=== PATIENT | female | born 2000 | race Caucasian/White ===

== ENCOUNTER 2023-05-30 11:41 | Emergency (ER) | payer BC, SELFPAY ==
[2023-05-30 11:49] VITALS: BP 124/78; PULSE 84; RESP 18; TEMP 36.4; O2SAT 98
--- NOTE | 2023-05-30 12:12 | ED.URI ---
HPI - URI/Sore Throat General Chief Complaint: Upper Respiratory Infection Stated Complaint: sore throat Time Seen by Provider: 05/30/23 12:10 Source: patient, RN notes reviewed and old records reviewed Mode of arrival: ambulatory Limitations: no limitations History of Present Illness HPI Narrative: 23-year-old female who presents to [facility] with complaints of 3 day history of worsening sore throat, head congestion, some body aches. Patient has been taking Advil for her complaints. Patient reports that her throat is painful to swallow and burning rates her pain 6/10. Patient denies any known illl contacts. MD elicited complaint: sore throat and nasal congestion Pertinent past history: sinusitis Onset (ago): day(s) (3) Pain scale (0-10): 6 Able to tolerate fluids by mouth: Yes Exacerbating factors: swallowing Associated symptoms: myalgias, rhinorrhea, nasal congestion and sore throat Treatments prior to arrival: ibuprofen Related Data Home Medications Medication Instructions Recorded Confirmed bupropion HCl 150 mg 24 hr tablet, 150 mg PO DAILY 05/30/23 05/30/23 extended release citalopram 20 mg tablet 20 mg PO DAILY 05/30/23 05/30/23 omeprazole 40 mg capsule,delayed 40 mg PO DAILY 05/30/23 05/30/23 release Allergies Allergy/AdvReac Type Severity Reaction Status Date / Time No Known Allergies Allergy Verified 05/30/23 12:04 Review of Systems Review of Systems: CONSTITUTIONAL: Denies malaise, chills, sweats, or known fever. EYES: Denies visual changes, redness, or discharge. ENT: Reports rhinorrhea, congestion, sinus pain,no otalgia positive for sore throat. CARDIOVASCULAR: Denies chest pain, palpitations, or edema. RESPIRATORY: Reports no cough.? Denies dyspnea. GASTROINTESTINAL: Denies abdominal pain, nausea, vomiting, diarrhea SKIN: Denies rash or itching. MUSCULOSKELETAL: Reports myalgia. NEUROLOGIC: Denies headache. All systems reviewed & are unremarkable except as noted in HPI and below PMFSH Past Medical History Medical History (Updated 05/31/23 @ 00:02 by Td Steele) Anxiety and depression GERD (gastroesophageal reflux disease) PCOS (polycystic ovarian syndrome) Social History Social History (Updated 05/31/23 @ 08:44 by Casi Oseguera NP) Smoking status: Current some day smoker Tobacco type: e-cigarettes/vaping Alcohol intake: current Alcohol use details: social Substance use type: does not use Gender identity (if verbalized by the patient): Female Comments At time of signature, agree with nursing past medical, surgical, social and family history. There is no relevant family history pertinent to the presenting complaint Exam Narrative: GENERAL: Well-appearing, well-nourished, and in no acute distress. HEAD: Normocephalic EYES: PERRLA, conjunctivae clear ENT: Nares clear, turbinates edematous and erythematous, clear discharge. Mucous membranes moist. TM pearly robles with dull light reflex bilaterally; no tragal tenderness. Oropharynx erythematous without lesions. Tonsils red enlarged and without exudate, no drooling, no hoarseness, no trismus, uvula midline. NECK: Supple. lymphadenopathy CHEST: Clear to auscultation, breath sounds equal. No wheezing, rhonchi, rales, or stridor. No respiratory distress, speaks in full sentences.no cough noed SAO2 98% on room air HEART: Regular rate and rhythm. No murmur heard. SKIN: Warm, dry, no rash. NEURO: Alert and oriented x3. PSYCH: Normal mood and affect Course Course Emergency Course: Patient is aware of diagnosis, understands and agrees to treatment plan.? Anticipatory guidance given.? Patient agrees to follow-up as directed and is aware of reasons to seek care at the emergency department. Portions of this record may have been created with voice recognition software Level of Care: Express Care Visit Vital Signs Vital signs: Vital Signs Temperature 36.4 C L 05/30/23
== END 2023-05-30 12:30 | disposition home or self-care (01) ==
PROVIDERS: Emergency Provider Registered Nurse; PCP Student in an Organized Health Care Education/Training Program
DX: J02.0 Streptococcal pharyngitis (principal); K21.9 Gastro-esophageal reflux disease without esophagitis; E28.2 Polycystic ovarian syndrome; F41.9 Anxiety disorder, unspecified; F32.A Depression, unspecified; F17.290 Nicotine dependence, other tobacco product, uncomplicated
CPT/HCPCS: 87880; 99213; G0463

== ENCOUNTER 2023-06-19 18:18 | Emergency (ER) | payer BC, SELFPAY ==
[2023-06-19 18:23] VITALS: BP 116/63; PULSE 74; RESP 16; TEMP 36.1; O2SAT 98
--- NOTE | 2023-06-19 18:40 | ED.URI ---
HPI - URI/Sore Throat General Chief Complaint: Upper Respiratory Infection Stated Complaint: Sore Throat/Cough Source: patient and RN notes reviewed History of Present Illness HPI Narrative: 23-year-old female presents to urgent care with complaints of a sore throat x1 week. Patient states she was diagnosed strep throat earlier in the month and took her prescribed amoxicillin as directed. Patient states she thinks she missed 2 doses of the prescription but that's it. Patient states her symptoms resolved until 1 week ago. Patient is also reporting some congestion and ear pain. Patient reports having chest pain and shortness all the time? and contributes this to vaping. Pt denies any fevers, chills, vomiting, diarrhea, or abdominal pain. Related Data Home Medications Medication Instructions Recorded Confirmed bupropion HCl 150 mg 24 hr tablet, 150 mg PO DAILY 05/30/23 06/19/23 extended release citalopram 20 mg tablet 20 mg PO DAILY 05/30/23 06/19/23 omeprazole 40 mg capsule,delayed 40 mg PO DAILY 05/30/23 06/19/23 release Allergies Allergy/AdvReac Type Severity Reaction Status Date / Time No Known Allergies Allergy Verified 06/19/23 18:35 Review of Systems Review of Systems: Pertinent positives and pertinent negatives per HPI. [facility] Past Medical History Medical History (Updated 06/19/23 @ 18:54 by Cele Conway APRN) Anxiety and depression GERD (gastroesophageal reflux disease) PCOS (polycystic ovarian syndrome) Social History Social History (Updated 05/31/23 @ 08:44 by Casi Oseguera NP) Smoking status: Current some day smoker Tobacco type: e-cigarettes/vaping Alcohol intake: current Alcohol use details: social Substance use type: does not use Gender identity (if verbalized by the patient): Female Comments At the time of my signature, I reviewed and agree with the nursing past medical, surgical, social, and family history. There is no relevant family history pertinent to the patient complaint. Exam Narrative: GENERAL: This is a well-nourished, well-developed patient, in no apparent distress. HEAD: normocephalic, atraumatic. EYES: Sclera clear/white. Vision is grossly intact. EARS: External ears normal, auditory canals clear and without drainage, TMs normal without perforation. Hearing grossly intact. NOSE: External nose normal with no obvious nasal discharge, nares without redness, no rhinorrhea. THROAT: Mucous membranes moist, posterior pharynx clear. NECK: Neck supple, non-tender without lymphadenopathy, masses or thyromegaly. CARDIOVASCULAR: Regular rate and rhythm without murmurs, gallops, or rubs. RESPIRATORY: Clear to auscultation. Breath sounds equal bilaterally. No wheezes, rales, or rhonchi. SKIN: warm, intact with no suspicious lesions or rash, good texture and turgor. NEURO: awake, alert, and oriented to person, place and time. There were no obvious focal neurologic abnormalities. EXTREMITIES: No clubbing, cyanosis, or edema. No joint tenderness, effusion, or edema noted. BACK: Nontender without deformity or crepitus. No flank tenderness. Course Course Level of Care: Express Care Visit Vital Signs Vital signs: Vital Signs Temperature 96.9 F L 06/19/23 18:23 Pulse Rate 74 06/19/23 18:23 Respiratory Rate 16 06/19/23 18:23 Blood Pressure 116/63 06/19/23 18:23 Pulse Oximetry 98 06/19/23 18:23 Oxygen Delivery Room Air 06/19/23 18:23 Temperature 96.9 F L 06/19/23 18:23 Pulse Rate 74 06/19/23 18:23 Respiratory Rate 16 06/19/23 18:23 Blood Pressure 116/63 06/19/23 18:23 Pulse Oximetry 98 06/19/23 18:23 Oxygen Delivery Room Air 06/19/23 18:23 Reviewed MDM - URI/Sore Throat MDM Narrative Medical decision making narrative: Rapid strep is negative in the office; however we will send to the lab for confirmation; there is a small percentage chance that it can come back positive; if it is, we will call you in 2-3day
== END 2023-06-19 18:55 | disposition home or self-care (01) ==
PROVIDERS: Emergency Provider Nurse Practitioner Family; PCP Student in an Organized Health Care Education/Training Program
DX: J02.9 Acute pharyngitis, unspecified (principal); Z20.822 Contact with and (suspected) exposure to COVID-19; F17.290 Nicotine dependence, other tobacco product, uncomplicated; F41.9 Anxiety disorder, unspecified; F32.A Depression, unspecified; K21.9 Gastro-esophageal reflux disease without esophagitis; E28.2 Polycystic ovarian syndrome
CPT/HCPCS: 87081; 87426; 87880; 99213; C9803; G0463

== ENCOUNTER 2023-10-04 08:10 | Emergency (ER) | payer BC, SELFPAY ==
--- NOTE | 2023-10-04 08:13 | ED.GENADULT ---
HPI - General Adult General Chief complaint: Urogenital-Female Stated complaint: Urinary Problem Time Seen by Provider: 10/04/23 08:25 Source: patient, RN notes reviewed and old records reviewed Mode of arrival: ambulatory Limitations: no limitations History of Present Illness HPI narrative: 23-year-old female presents to [facility] with complaint of burning with urination, frequency and urgency that started . Patient taking azo. Patient denies fevers, abdominal pain, back pain Related Data Home Medications Medication Instructions Recorded Confirmed bupropion HCl 150 mg 24 hr tablet, 150 mg PO DAILY 05/30/23 10/04/23 extended release citalopram 20 mg tablet 20 mg PO DAILY 05/30/23 10/04/23 omeprazole 40 mg capsule,delayed 40 mg PO DAILY 05/30/23 10/04/23 release Allergies Allergy/AdvReac Type Severity Reaction Status Date / Time No Known Allergies Allergy Verified 10/04/23 08:22 Review of Systems Constitutional: Constitutional: Reports no additional constitutional complaints, Denies body ache(s), Denies chills, Denies fatigue and Denies fever(s) Eyes: Eyes: Reports no additional eye complaints ENT: Reports system reviewed and no additional complaints, except as documented Cardiovascular: Cardiovascular: Reports no additional cardiovascular complaints Respiratory: Respiratory: Reports no additional respiratory complaints Gastrointestinal: Gastrointestinal: Denies abdominal pain, Denies bloating, Denies GI cramping and Denies nausea Genitourinary: Genitourinary: Denies abnormal vaginal bleeding, Denies hematuria, Reports nocturia, Reports dysuria and Reports urinary urgency Neurologic: Reports system reviewed and no additional complaints, except as documented [facility] Past Medical History Medical History Anxiety and depression GERD (gastroesophageal reflux disease) PCOS (polycystic ovarian syndrome) Social History Social History Smoking status: Current some day smoker Tobacco type: e-cigarettes/vaping Alcohol intake: current Alcohol use details: social Substance use type: does not use Gender identity (if verbalized by the patient): Female Comments At the time of my signature, I reviewed and agree with the nursing past medical, surgical, social, and family history. There is no relevant family history pertinent to the patient complaint. Exam Const: General: cooperative, healthy appearing, no acute distress and well nourished Nutritional Appearance: well nourished Orientation/consciousness: patient oriented x3 Limitations: no limitations HENMT: Head: normal to inspection and normocephalic Ears: external ears normal, TM's normal bilaterally, mastoids normal and Abnormal EAC present Face/Nose/Sinus: normal facial exam Face and sinus: normal facial exam Mouth: Yes Normal oral and palatal mucosa present, Yes oropharynx normal and Yes moist mucous membranes Throat: posterior oropharynx normal, tonsils normal, uvula midline and no uvular edema Eyes: General: appearance normal, both eyes and all related structures Sclera: sclerae normal Pupils: Equal, round and reactive pupils present Resp: Effort & Inspection: normal respiratory effort, able to speak in complete sentences, no audible wheezes, no cough, no respiratory distress and no retractions Auscultation: clear to auscultation bilaterally, no crackles, no rales, no rhonchi and no wheezes Cardio: Rate: regular rate Rhythm: regular rhythm GI: Inspection: normal to inspection and non-distended : General: Yes bladder normal to palpation and Yes no CVA tenderness Back/Spine/Pelvis: Back: no CVA tenderness Skin: General skin exam: normal color and no rashes or lesions noted Neuro: General: patient oriented x3 Cranial nerves: Yes Equal, round and reactive pupils present Psych: Appearance: grossly normal Co
[2023-10-04 08:16] VITALS: BP 125/68; PULSE 71; RESP 16; TEMP 36.4; O2SAT 97
[2023-10-04 08:28] VITALS: BP 125/68; PULSE 71; RESP 16; TEMP 36.4; O2SAT 97
== END 2023-10-04 08:37 | disposition home or self-care (01) ==
PROVIDERS: Emergency Provider Registered Nurse; PCP Student in an Organized Health Care Education/Training Program
DX: N30.90 Cystitis, unspecified without hematuria (principal); B96.20 Unspecified Escherichia coli [E. coli] as the cause of diseases classified elsewhere; K21.9 Gastro-esophageal reflux disease without esophagitis; E28.2 Polycystic ovarian syndrome; F41.9 Anxiety disorder, unspecified; F32.A Depression, unspecified; F17.290 Nicotine dependence, other tobacco product, uncomplicated
CPT/HCPCS: 81003; 81025; 87077; 87086; 87186; 99213; G0463

== ENCOUNTER 2023-11-09 16:03 | Emergency (ER) | payer OTHER, SELFPAY ==
[2023-11-09 16:20] VITALS: BP 131/80; PULSE 78; RESP 20; TEMP 36.4; O2SAT 100
--- NOTE | 2023-11-09 16:25 | ED.URI ---
HPI - URI/Sore Throat General Chief Complaint: Upper Respiratory Infection Stated Complaint: jonel,cough,body aches,headaches Time Seen by Provider: 11/09/23 16:25 Source: patient, RN notes reviewed and old records reviewed Mode of arrival: ambulatory Limitations: no limitations History of Present Illness HPI Narrative: 23 year old female who presents to [facility] care with complaints of cough, body aches, sore throat,congestion and headache discomfort with some chills but no known fever for the past 1.5weeks. Patient reports that family members have also been ill with cough and cold symptoms but their symptoms have resolved but mine continue. Patient reports that she has taken DayQuil NyQuil, Sudafed, and Mucinex for her symptoms without resolution of symptoms. MD elicited complaint: cough, rhinorrhea, nasal congestion, sinus pain and other (headaches) Pertinent past history: sinusitis, seasonal allergies and other (strep throat) Onset (ago): week(s) (1.5 weeks) Pain scale (0-10): 5 Able to tolerate fluids by mouth: No Treatments prior to arrival: other (DayQuil, NyQuil Mucinex, and Sudafed) Related Data Home Medications Medication Instructions Recorded Confirmed bupropion HCl 150 mg 24 hr tablet, 150 mg PO DAILY 05/30/23 10/04/23 extended release citalopram 20 mg tablet 20 mg PO DAILY 05/30/23 10/04/23 omeprazole 40 mg capsule,delayed 40 mg PO DAILY 05/30/23 10/04/23 release Allergies Allergy/AdvReac Type Severity Reaction Status Date / Time No Known Allergies Allergy Verified 10/04/23 08:22 Review of Systems Review of Systems: CONSTITUTIONAL: Reports malaise, chills, sweats, or fever. EYES: Denies visual changes, redness, or discharge. ENT: Reports rhinorrhea, congestion, sinus pain,no otalgia and positive for sore throat. CARDIOVASCULAR: Denies chest pain, palpitations, or edema. RESPIRATORY: Reports cough.? Denies dyspnea. GASTROINTESTINAL: Denies abdominal pain, nausea, vomiting, diarrhea SKIN: Denies rash or itching. MUSCULOSKELETAL:Reports some myalgia. NEUROLOGIC: Reports headache. All systems reviewed & are unremarkable except as noted in HPI and below PMFSH Past Medical History Medical History Anxiety and depression GERD (gastroesophageal reflux disease) PCOS (polycystic ovarian syndrome) Social History Social History Smoking status: Current some day smoker Tobacco type: e-cigarettes/vaping Alcohol intake: current Alcohol use details: social Substance use type: does not use Gender identity (if verbalized by the patient): Female Comments At time of signature, agree with nursing past medical, surgical, social and family history. There is no relevant family history pertinent to the presenting complaint Exam Narrative: GENERAL: Well-appearing, well-nourished, and in no acute distress. HEAD: Normocephalic EYES: PERRLA, conjunctivae clear ENT: Nares clear, turbinates edematous and erythematous, clear to yellow discharge. Mucous membranes moist. TM pearly robles with dull light reflex bilaterally; no tragal tenderness. Oropharynx erythematous without lesions. Tonsils not enlarged and without exudate, no drooling, no hoarseness, no trismus, uvula midline.post nasal drainage NECK: Supple. No lymphadenopathy CHEST: Clear to auscultation, breath sounds equal. No wheezing, rhonchi, rales, or stridor. No respiratory distress, speaks in full sentences.cough, SAO2 100% on room air HEART: Regular rate and rhythm. No murmur heard. SKIN: Warm, dry, no rash. NEURO: Alert and oriented x3. PSYCH: Normal mood and affect Course Course Emergency Course: Patient is aware of diagnosis, understands and agrees to treatment plan.? Anticipatory guidance given.? Patient agrees to follow-up as directed and is aware of reasons to seek care at the emergency depar
== END 2023-11-09 16:45 | disposition home or self-care (01) ==
PROVIDERS: Emergency Provider Registered Nurse; PCP Student in an Organized Health Care Education/Training Program
DX: J01.40 Acute pansinusitis, unspecified (principal); F17.290 Nicotine dependence, other tobacco product, uncomplicated; K21.9 Gastro-esophageal reflux disease without esophagitis; E28.2 Polycystic ovarian syndrome; F41.9 Anxiety disorder, unspecified; F32.A Depression, unspecified
CPT/HCPCS: 99213; G0463